=== PATIENT | male | born 1945 | race Caucasian/White ===

== ENCOUNTER → 2019-06-10 13:17 | Outpatient (BNVA) | payer MEDICARE, MEDICAID, SELFPAY | PROVIDERS: Family Provider Electrodiagnostic Medicine; PCP Electrodiagnostic Medicine; Visit Provider Anesthesiology | DX: G89.29 Other chronic pain (principal); M51.36 Other intervertebral disc degeneration, lumbar region; M79.651 Pain in right thigh; M25.551 Pain in right hip; M25.561 Pain in right knee; M25.562 Pain in left knee; F17.210 Nicotine dependence, cigarettes, uncomplicated; Z79.891 Long term (current) use of opiate analgesic | CPT/HCPCS: 99214 ==

== ENCOUNTER → 2019-08-05 10:04 | Outpatient (BNVA) | payer MEDICARE, MEDICAID, SELFPAY | PROVIDERS: Family Provider Electrodiagnostic Medicine; PCP Electrodiagnostic Medicine; Visit Provider Nurse Practitioner | DX: M54.5 Low back pain (principal); M79.651 Pain in right thigh; F17.210 Nicotine dependence, cigarettes, uncomplicated; Z79.891 Long term (current) use of opiate analgesic | CPT/HCPCS: 99213 ==

== ENCOUNTER 2019-11-10 18:57 | Emergency (ER) | payer MEDICARE, MEDICAID, SELFPAY ==
[2019-11-10 19:02] VITALS: BP 138/79; PULSE 80; RESP 14; TEMP 35.8; O2SAT 96; BMI 28.0
--- NOTE | 2019-11-10 19:25 | ED_ITS ---
HPI - Eye Problem General: Chief complaint: Eye Problems Stated complaint: fb in eye Time Seen by Provider: 11/10/19 19:21 Source: patient Mode of arrival: ambulatory Limitations: no limitations History of Present Illness: HPI Narrative: 73-year-old male who states he was grinding metal yesterday and got a piece of metal in his eye. Patient states that he has had eye pain since then. States that sharp in nature in his left eye and rates it a 7 out of 10. chief complaint: eye pain and foreign body Onset (ago): day(s) Onset description: sudden Duration: constant Location: left eye Associated symptoms: Denies fever(s), headache(s), nausea, neck pain or vomiting Review of Systems Const: Denies: fever(s), chills, body aches or change in appetite Eyes: Reports: eye discomfort and eye redness ENMT: Denies: throat pain or dental pain Card: Denies: chest pain Resp: Denies: dyspnea GI: Denies: abdominal pain, nausea, vomiting or diarrhea : Denies: dysuria Musc: Denies: neck pain or back pain Skin/Breast: Denies: rash Neuro: Denies: headache(s) Psych: Denies: depression Alejandro/Lymph: Denies: easy bruising All/Imm: Denies: urticaria PFSH ED PFSH: Medical History (Updated 11/10/19 @ 19:28 by Davonte Man MD) Chronic lumbosacral pain Chronic pain of both knees Current every day smoker Degeneration of lumbar intervertebral disc Encounter for long-term opiate analgesic use Hip pain, right Opioid contract exists Surgical History H/O arthroscopy of right knee Family History Other Cancer Diabetes Hypertension Social History Smoking and tobacco status: current every day smoker cigarettes Alcohol intake: former History of recent travel: No Physical Exam Const: COMMON NORMALS: no acute distress, patient oriented x3 and healthy appearing HENMT: COMMON NORMALS: normocephalic and atraumatic HEAD & SCALP: normocephalic and atraumatic Eye: COMMON NORMALS: Equal, round and reactive pupils present and EOMs intact bilaterally PUPIL: Yes Equal, round and reactive pupils present OTHER: Small piece of metal anterior cornea of the left eye Neck/C-Spine: COMMON NORMALS: full ROM and supple Chest: COMMONS NORMALS: normal inspection of the chest and normal palpation of entire chest wall Resp: COMMON NORMALS: normal respiratory effort, No retractions, No use of accessory muscles and clear to auscultation bilaterally AUSCULTATION: clear to auscultation bilaterally Cardio: COMMON NORMALS: regular rate, regular rhythm and No murmurs present (Cardio) RATE: regular rate RHYTHM: regular rhythm GI: COMMON NORMALS: Normal to inspection, nondistended, normoactive bowel sounds present, Soft to palpation, non-tender and no masses PALPATION: Yes Soft to palpation Extremity: COMMON NORMALS: normal to inspection and full ROM Neuro: COMMON NORMALS: patient oriented x3, moves all extremities and no focal motor deficits Psych: COMMON NORMALS: mental status grossly normal, Normal thought process present and cooperative THOUGHT PROCESS: Normal thought process present Skin: COMMON NORMALS: no rashes or lesions noted and no wounds GENERAL SKIN EXAM: no rashes or lesions noted Course Vital Signs: Vital signs: Vital Signs Temperature 96.4 F L 11/10/19 19:02 Pulse Rate 80 11/10/19 19:02 Respiratory Rate 14 11/10/19 19:02 Blood Pressure 138/79 11/10/19 19:02 Pulse Oximetry 96 11/10/19 19:02 MDM - Eye Problem MDM Narrative: Medical decision making narrative: Patient presents here with a small piece of metal and rust ring to his left eye. I did use a bur drill and burred out most of the metal but still has some rust ring intact. Will place patient on erythromycin and have him follow-up with ophthalmology. Patient has no signs of glaucoma. Discharge Plan Discharge Patient Disposition: Home, Self-Care Clinical Impression: Foreign body in eye Qualifiers: Encounter type: initial encounter Laterality: left Qualified Code(s): T15.92XA - Foreign body on external eye, part unspecified, left eye, initial encounter Condition: Stable Prescriptions: New erythromycin 5 mg/gram (0.5 %) ointment 1 applic ophthalmic (eye) BID 7 Days Qty: 3.5 RF: 0 No Action clopidogrel [Plavix] 75 mg tablet 75 mg PO QDAY RF: 0 simvastatin 40 mg tablet 40 mg PO QDAY RF: 0 lisinopril 20 mg tablet 20 mg PO QDAY RF: 0 amitriptyline 25 mg tablet 25 mg PO .BEDTIME Qty: 30 RF: 1 oxycodone 15 mg tablet 15 mg PO BID PRN (Reason: pain) 30 Days Qty: 60 RF: 0 oxycodone 15 mg tablet 15 mg PO BID PRN (Reason: pain) 30 Days Qty: 60 RF: 0 oxycodone 30 mg tablet 30 mg PO .6 TIMES DAILY PRN (Reason: pain) 30 Days Qty: 180 RF: 0 oxycodone 30 mg tablet 30 mg PO .6 times a day PRN (Reason: pain) 30 Days Qty: 180 RF: 0 Discharge Orders: Discharge Order (Routine); Ordered 11/10/19 Ordered By: Davonte Man Referrals: Deyvi Payton MD [Physician] - 1-3 days Edgar Beaver DO [Primary Care Provider] - Discharge Diet: Advance as tolerated Discharge Activity: Resume usual activity Patient Instructions: Eye Foreign Body (ED) Coding Level of Care Code ED [employer] Service Engineer for Rodrigo Canas
[2019-11-10] MEDS: fluorescein 1 mg Strip EYE-RIGHT (19:26)
[2019-11-10] MEDS: tetracaine 0.5% Op Soln 4 mL Btl 1 DROP EYE-RIGHT (19:26)
[2019-11-10 19:40] VITALS: BP 114/76; PULSE 74; RESP 20; O2SAT 94
--- NOTE | 2019-11-11 10:20 | DCPLANNER ---
pmp project manager had message to schedule a follow up appointment for patient with Dr. Payton. pmp project manager called patient at phone number [phone], and was unable to speak with patient and unable to leave a voicemail for patient.
--- NOTE | 2019-11-11 11:15 | DCPLANNER ---
Patient called supervisor case loading back, stating that he did want the appointment. account general manager called Dr. Payton office, a follow up appointment was scheduled for Thursday, November 14, 2019 at 11:[address] Payton. account general manager called patient and informed patient of the scheduled appointment. Patient stated that he would attend the appointment.
--- NOTE | 2019-11-16 15:22 | DCPLANNER ---
Patient did attend appointment scheduled for 11.14.[address] Payton.
== END 2019-11-10 19:45 | disposition home or self-care (01) ==
PROVIDERS: Emergency Provider Emergency Medicine; PCP Electrodiagnostic Medicine
DX: T15.92XA Foreign body on external eye, part unspecified, left eye, initial encounter (principal); Z79.02 Long term (current) use of antithrombotics/antiplatelets; X58.XXXA Exposure to other specified factors, initial encounter; F17.210 Nicotine dependence, cigarettes, uncomplicated
CPT/HCPCS: 12345; 99281; 99283

== ENCOUNTER → 2019-12-09 13:10 | Outpatient (BNVA) | payer MEDICARE, MEDICAID, SELFPAY | PROVIDERS: PCP Electrodiagnostic Medicine; Visit Provider Anesthesiology | DX: G89.29 Other chronic pain (principal); M54.42 Lumbago with sciatica, left side; M54.41 Lumbago with sciatica, right side; M51.36 Other intervertebral disc degeneration, lumbar region; M25.551 Pain in right hip; M25.561 Pain in right knee; M25.562 Pain in left knee; F17.210 Nicotine dependence, cigarettes, uncomplicated; Z79.891 Long term (current) use of opiate analgesic | CPT/HCPCS: 99214 ==

== ENCOUNTER → 2020-02-07 13:37 | Outpatient (BNVA) | payer MEDICARE, MEDICAID, SELFPAY | PROVIDERS: PCP Electrodiagnostic Medicine; Visit Provider Anesthesiology | DX: G89.29 Other chronic pain (principal); M54.41 Lumbago with sciatica, right side; M54.42 Lumbago with sciatica, left side; M51.36 Other intervertebral disc degeneration, lumbar region; M25.561 Pain in right knee; M25.562 Pain in left knee; F17.210 Nicotine dependence, cigarettes, uncomplicated; Z79.891 Long term (current) use of opiate analgesic | CPT/HCPCS: 99214 ==

== ENCOUNTER → 2020-04-18 07:52 | Outpatient (BNVA) | payer MEDICARE, MEDICAID, SELFPAY | PROVIDERS: PCP Electrodiagnostic Medicine; Visit Provider Anesthesiology | DX: G89.29 Other chronic pain (principal); M51.36 Other intervertebral disc degeneration, lumbar region; M25.551 Pain in right hip; M25.561 Pain in right knee; M25.562 Pain in left knee; G47.00 Insomnia, unspecified; F17.210 Nicotine dependence, cigarettes, uncomplicated; Z79.891 Long term (current) use of opiate analgesic | CPT/HCPCS: 99214 ==

== ENCOUNTER → 2020-06-12 12:35 | Outpatient (BNVA) | payer MEDICARE, MEDICAID, SELFPAY | PROVIDERS: PCP Electrodiagnostic Medicine; Visit Provider Nurse Practitioner | DX: G89.29 Other chronic pain (principal); M51.36 Other intervertebral disc degeneration, lumbar region; M25.551 Pain in right hip; M25.561 Pain in right knee; M25.562 Pain in left knee; F17.210 Nicotine dependence, cigarettes, uncomplicated; Z79.891 Long term (current) use of opiate analgesic | CPT/HCPCS: 99213 ==

== ENCOUNTER → 2020-08-14 13:28 | Outpatient (BNVA) | payer MEDICARE, MEDICAID, SELFPAY | PROVIDERS: PCP Electrodiagnostic Medicine; Visit Provider Nurse Practitioner | DX: G89.29 Other chronic pain (principal); M51.36 Other intervertebral disc degeneration, lumbar region; M25.551 Pain in right hip; F17.210 Nicotine dependence, cigarettes, uncomplicated; Z79.891 Long term (current) use of opiate analgesic | CPT/HCPCS: 99213 ==